=== PATIENT | female | born 2000 | race Two or more races ===

== ENCOUNTER 2018-12-09 00:15 | Day surgery (SDC) | payer BC ==
[~2018-12-09 00:15] MED LIST: ONDA4ODT MM; POTA20LUD PO
[2018-12-09] MEDS ORDERED: THYROID30 MG PO (09:33)
[2018-12-09] MEDS ORDERED: PROG100 PO (09:34)
== END 2018-12-09 09:35 | disposition home or self-care (01) ==
LOC: ATC 00:15
DX: R55 Syncope and collapse (principal); E03.9 Hypothyroidism, unspecified; E66.9 Obesity, unspecified
CPT/HCPCS: 36415; 80400; 82533; 96372; J0834